=== PATIENT | male | born 1940 | race Caucasian/White ===

== ENCOUNTER 2018-10-13 09:00 | Inpatient (IN) ==
[~2018-10-13 09:00] MED LIST: DEXTROSE 50% 25 GM/50 ML SYRINGE IV PRN; ENALAPRIL 20 MG TABLET PO SCH; GLUCAGON 1 MG VIAL IM PRN
[2018-10-13 11:03] LABS: Basophils # 0.1 10*3/uL (0.0-0.2); Basophils % 0.6 % (0.0-0.8); Eosinophils # 0.2 10*3/uL (0.0-0.87); Eosinophils % 1.3 % (0.00-10.9); Hematocrit 43.8 VOL% (42.0-52.0); Hemoglobin 14.8 GM/DL (14.0-18.0); Immature Granulocytes % 0.3 %; Immature Granulocytes Absolute 0.04 #; Lymphocytes # 2.3 10*3/uL (1.4-4.0); Lymphocytes % 20.1 % (21.2-54.2); Mean Corpuscular HGB Conc 33.8 GM/DL (32-36); Mean Corpuscular Hemoglobin 30 PG (27-34); Mean Platelet Volume 9.8 FL (9.6-12.0); Monocytes # 0.8 10*3/uL (0.11-0.8); Monocytes % 7.2 % (1.7-12.7); Neutrophils # 8.1 10*3/uL (1.4-7.4); Neutrophils % 70.5 % (38.7-73.9); Platelet Count 240 T/CUMM (130-400); Red Blood Count 4.92 MC/CUMM (3.8-5.5); Red Cell Distribution Width 13.3 % (9.3-17.3); White Blood Count 11.5 T/CUMM (4-12)
[2018-10-13 11:41] LABS: Albumin 3.6 G/DL (3.4-5.0); Bilirubin,Total 0.4 MG/DL (0.2-1.0); Calcium 9.1 MG/DL (8.5-10.1); Osmolality,Calculated 263.7 MOS/KG (273-304); Potassium 4.4 MMOL/L (3.5-5.1); Total Protein 7.7 G/DL (6.4-8.3)
[2018-10-13] MEDS: SODIUM CHLORIDE 0.9% 1,000 ML IV SCH ×2 (12:47→22:13)
[2018-10-13] MEDS: NICOTINE 21 MG/24 HR PATCH TRANSDERM SCH (12:57)
[2018-10-13] MEDS: amLODIPine 5 MG TABLET PO SCH (13:00)
[2018-10-13] MEDS: SIMVASTATIN 10 MG TABLET PO SCH (13:00)
[2018-10-13] MEDS: ENALAPRIL 10 MG TABLET PO SCH (13:05)
[2018-10-13 14:30] LABS: ABG Base Excess 2.5 MMOL/L (-2.5-2.5); ABG HCO3 25.8 MMOL/L (20-26); ABG Oxygen Saturation 65.4 % (95-100); ABG PCO2 43.9 MM HG (35-48); ABG TCO2 23.8 MMOL/L (23-27)
[2018-10-13] MEDS: CHLORHEXIDINE 4% SOLN 118 ML BOTTLE TOP SCH ×2 (15:15→20:23)
[2018-10-13 15:54] LABS: ABG Base Excess 3.2 MMOL/L (-2.5-2.5); ABG HCO3 27.2 MMOL/L (20-26); ABG Oxygen Saturation 95.5 % (95-100); ABG PCO2 39.3 MM HG (35-48); ABG PH 7.449 (7.35-7.45); ABG PO2 73.3 MM HG (80-95)
[2018-10-13] MEDS: CHLORHEXIDINE 0.12% ORAL RINSE 60 ML BOTTLE SWISH/SPIT SCH (20:21)
[2018-10-14] MEDS ORDERED: PAPAVERINE 60 MG/2 ML VIAL ONE (04:23)
[2018-10-14] MEDS ORDERED: VANCOMYCIN 1,000 MG VIAL ONE (04:23)
[2018-10-14] MEDS ORDERED: MIDAZOLAM 10 MG/2 ML VIAL ONE (05:29)
[2018-10-14] MEDS ORDERED: SUFentanil 250 MCG/5 ML AMP ONE (05:29)
[2018-10-14] MEDS ORDERED: HEPARIN/NACL 0.9% 2 UNITS/ML 500 ML IV ONE (05:30)
[2018-10-14] MEDS ORDERED: CEFUROXIME 1,500 MG VIAL ONE (05:36)
[2018-10-14] MEDS ORDERED: DIAZEPAM 5 MG TABLET PO ONE (06:00)
[2018-10-14] MEDS ORDERED: IPRATROPIUM 500 MCG/2.5 ML NEB RESP TX ONE (06:00)
[2018-10-14] MEDS ORDERED: CEFUROXIME INJ 1,500 MG in SYRINGE 1 EACH IV ONE (06:30)
[2018-10-14 07:33] LABS: ABG Base Excess -0.7 MMOL/L (-2.5-2.5); ABG HCO3 23.9 MMOL/L (20-26); ABG Oxygen Saturation 99.9 % (95-100); ABG PH 7.389 (7.35-7.45); Glucose Heart Surgery 123 MG/DL (74-106); Hematocrit Heart Surgery 41.1 PERCENT (42-52); Hemoglobin Heart Surgery 13.4 G/DL (14.0-18.0); Ionized Calcium Arterial 1.16 MMOL/L (1.21-1.46); PH Patient Temp Arterial 7.389; Patient Temperature 37 CELCIUS; Sodium Heart/CVR 135 MMOL/L (135-145)
[2018-10-14] MEDS ORDERED: NITROPRUSSIDE 50 MG/2 ML VIAL ONE (07:40)
[2018-10-14] MEDS ORDERED: POTASSIUM CHLORIDE RIDER 100 ML IV ONE (07:40)
[2018-10-14] MEDS ORDERED: CALCIUM CHLORIDE 1,000 MG/10 ML SYRINGE IV ONE (07:40)
[2018-10-14] MEDS ORDERED: PHENYLEPHRINE DRIP 40 MG/250 ML PREMIX IV ONE (07:40)
[2018-10-14] MEDS ORDERED: ALBUMIN 5% 12.5 GM/250 ML VIAL IV ONE ×2 (07:41)
[2018-10-14 08:28] LABS: Apearance,Urine CLEAR (Clear); Bilirubin,Urine Negative (Negative); Blood, Urine Negative (Negative); Glucose,Urine (UA) Negative (Negative); Ketones,Urine Negative (Negative); Nitrite,Urine Negative (Negative); Protein,Urine Negative; RBC,Urine 1 /HPF (0-4); Urine Color Yellow (Yellow); Urine Specific Gravity 1.011 (1.001-1.035); Urine Urobilinogen < 2.0 EU/DL (0.2-1.0); WBC,Urine <1 /HPF (0-6)
[2018-10-14] MEDS: NICOTINE 21 MG/24 HR PATCH TRANSDERM SCH (08:47)
[2018-10-14] MEDS: amLODIPine 5 MG TABLET PO SCH (08:47)
[2018-10-14] MEDS: CHLORHEXIDINE 4% SOLN 118 ML BOTTLE TOP SCH (08:47)
[2018-10-14] MEDS: CHLORHEXIDINE 0.12% ORAL RINSE 60 ML BOTTLE SWISH/SPIT SCH ×2 (08:47→21:04)
[2018-10-14] MEDS: ENALAPRIL 10 MG TABLET PO SCH (08:48)
[2018-10-14] MEDS: SIMVASTATIN 10 MG TABLET PO SCH (08:48)
[2018-10-14 08:58] LABS: Hemoglobin Heart Surgery 9.4 G/DL (14.0-18.0); PH Patient Temp Venous 7.441; PO2 Patient Temp Venous 43.9 MM HG; Potassium Heart/CVR 4.7 MMOL/L (3.5-5.1); VBG Base Excess 0.7 MEQ/L (0-4); VBG HCO3 24.9 MEQ/L (24-28); VBG Oxygen Saturation 85.6 %; VBG PCO2 39.7 MMHG (41-51); VBG PH 7.412; VBG PO2 50.4 MMHG (17-40)
[2018-10-14] MEDS ORDERED: hydroCHLOROthiazide 12.5 MG CAPSULE PO SCH (09:00)
[2018-10-14 09:26] LABS: Hematocrit Heart Surgery 30.6 PERCENT (42-52); Hemoglobin Heart Surgery 9.9 G/DL (14.0-18.0); PCO2 Patient Temp Venous 32.7 MM HG; PH Patient Temp Venous 7.479; PO2 Patient Temp Venous 35.5 MM HG; Potassium Heart/CVR 5.2 MMOL/L (3.5-5.1); VBG Base Excess 1.2 MEQ/L (0-4); VBG HCO3 25.1 MEQ/L (24-28); VBG Oxygen Saturation 71.7 %; VBG PCO2 32.7 MMHG (41-51); VBG PH 7.479; VBG PO2 35.5 MMHG (17-40)
[2018-10-14] MEDS: SODIUM CHLORIDE 0.9% 1,000 ML IV SCH (09:48)
[2018-10-14] MEDS ORDERED: DEXTROSE 5% KCL 20 MEQ 20 MEQ/1,000 ML BAG IV ONE (09:55)
[2018-10-14] MEDS ORDERED: MANNITOL 100 GM/500 ML BAG IV ONE (09:55)
[2018-10-14] MEDS ORDERED: SODIUM BICARBONATE 50 MEQ/50 ML SYRINGE IV ONE (09:55)
[2018-10-14] MEDS ORDERED: methylPREDNISolone SOD SUC 1,000 MG/8 ML VIAL ONE (09:56)
[2018-10-14] MEDS ORDERED: PROTAMINE SULFATE 250 MG/25 ML VIAL IV ONE (09:56)
[2018-10-14] MEDS ORDERED: HEPARIN 10,000 UNIT/10 ML VIAL ONE (09:56)
[2018-10-14] MEDS ORDERED: MAGNESIUM SULFATE 10 GM/20 ML VIAL IV ONE (09:56)
[2018-10-14] MEDS ORDERED: ALBUMIN 25% 25 GM/100 ML VIAL IV ONE (09:56)
[2018-10-14] MEDS ORDERED: FUROSEMIDE 20 MG/2 ML VIAL ONE (09:56)
[2018-10-14 09:57] LABS: ABG PH 7.408 (7.35-7.45)
[2018-10-14 09:58] LABS: ABG PO2 33.6 MM HG (80-95)
[2018-10-14 10:04] LABS: ABG Base Excess -0.3 MMOL/L (-2.5-2.5); ABG HCO3 24.2 MMOL/L (20-26); ABG Oxygen Saturation 98.9 % (95-100); ABG PCO2 41.2 MM HG (35-48); ABG PH 7.386 (7.35-7.45); Glucose Heart Surgery 219 MG/DL (74-106); Hematocrit Heart Surgery 35.9 PERCENT (42-52); Hemoglobin Heart Surgery 11.7 G/DL (14.0-18.0); PCO2 Patient Temp Arterial 41.2 MMHG; PH Patient Temp Arterial 7.386; Patient Temperature 37 CELCIUS; Potassium Heart/CVR 4.2 MMOL/L (3.5-5.1); Sodium Heart/CVR 130 MMOL/L (135-145)
[2018-10-14] MEDS ORDERED: AMIODARONE 450 MG/9 ML VIAL IV ONE (10:26)
[2018-10-14] MEDS ORDERED: AMIODARONE INJ 450 MG in DEXTROSE 5% 241 ML IV SCH ×2 (10:45→16:45)
[2018-10-14] MEDS ORDERED: SEVOFLURANE 1 UNIT/15 MINUTE INH ONE (11:04)
[2018-10-14] MEDS ORDERED: AMIODARONE 150 MG/3 ML VIAL ONE (11:04)
[2018-10-14] MEDS ORDERED: CALCIUM CHLORIDE 1,000 MG/10 ML VIAL IV ONE (11:04)
[2018-10-14] MEDS ORDERED: PHENYLEPHRINE DRIP 20 MG/250 ML PREMIX IV ONE (11:04)
[2018-10-14] MEDS ORDERED: MIDAZOLAM 2 MG/2 ML VIAL ONE (11:04)
[2018-10-14] MEDS ORDERED: LACTATED RINGERS 1,000 ML IV ONE (11:05)
[2018-10-14] MEDS ORDERED: ESMOLOL 100 MG/10 ML VIAL IV ONE (11:05)
[2018-10-14] MEDS ORDERED: PHENYLEPHRINE 1 MG/10 ML SYRINGE IV ONE (11:05)
[2018-10-14] MEDS ORDERED: VECURONIUM 10 MG VIAL IV ONE (11:05)
[2018-10-14] MEDS ORDERED: ETOMIDATE 40 MG/20 ML VIAL IV ONE (11:05)
[2018-10-14] MEDS ORDERED: AMINOCAPROIC ACID 5,000 MG/20 ML VIAL ONE (11:05)
[2018-10-14] MEDS ORDERED: ACETAMINOPHEN 650 MG SUPP RECTAL PRN (11:14)
[2018-10-14] MEDS ORDERED: INSULIN REGULAR DRIP 100 ML IV SCH (11:14)
[2018-10-14] MEDS ORDERED: NITROPRUSSIDE 100 MG in DEXTROSE 5% 250 ML IV PRN (11:14)
[2018-10-14] MEDS ORDERED: MORPHINE 10 MG/1 ML VIAL IV PRN (11:14)
[2018-10-14] MEDS ORDERED: MIDAZOLAM 10 MG/2 ML VIAL IV PRN (11:14)
[2018-10-14] MEDS ORDERED: MAGNESIUM SULF RIDER 2 GM in PREMIX 1 EACH IV PRN (11:14)
[2018-10-14] MEDS ORDERED: PHENYLEPHRINE DRIP 40 MG/250 ML PREMIX IV PRN (11:14)
[2018-10-14] MEDS ORDERED: MORPHINE 4 MG/1 ML VIAL IV PRN (11:14)
[2018-10-14] MEDS ORDERED: VECURONIUM 10 MG VIAL IV PRN ×2 (11:14)
[2018-10-14] MEDS ORDERED: MIDAZOLAM 2 MG/2 ML VIAL IV PRN (11:14)
[2018-10-14] MEDS ORDERED: CALCIUM CHLORIDE 1,000 MG/10 ML SYRINGE IV PRN (11:14)
[2018-10-14] MEDS ORDERED: LACTATED RINGERS 250 ML IV PRN (11:14)
[2018-10-14] MEDS ORDERED: ONDANSETRON 4 MG/2 ML VIAL IV PRN (11:14)
[2018-10-14] MEDS ORDERED: INSULIN REGULAR 100 UNIT/ML IV ONE (11:14)
[2018-10-14] MEDS ORDERED: MAGNESIUM SULF RIDER 4 GM in PREMIX 1 EACH IV PRN (11:14)
[2018-10-14] MEDS ORDERED: DEXTROSE 50% 25 GM/50 ML SYRINGE IV PRN ×2 (11:14)
[2018-10-14 11:25] LABS: ABG Base Excess -0.4 MMOL/L (-2.5-2.5); ABG PCO2 44.4 MM HG (35-48); ABG PH 7.363 (7.35-7.45); ABG PO2 79.3 MM HG (80-95); ABG TCO2 22.3 MMOL/L (23-27); Glucose Heart Surgery 205 MG/DL (74-106); Hematocrit Heart Surgery 39.3 PERCENT (42-52); Hemoglobin Heart Surgery 12.8 G/DL (14.0-18.0); Potassium Heart/CVR 3.8 MMOL/L (3.5-5.1)
[2018-10-14 11:26] LABS: Basophils % 0.4 % (0.0-0.8); Eosinophils # 0.1 10*3/uL (0.0-0.87); Eosinophils % 0.6 % (0.00-10.9); Hematocrit 36.9 VOL% (42.0-52.0); Hemoglobin 12.2 GM/DL (14.0-18.0); Immature Granulocytes % 0.7 %; Immature Granulocytes Absolute 0.07 #; Lymphocytes # 0.8 10*3/uL (1.4-4.0); Lymphocytes % 7.4 % (21.2-54.2); Mean Corpuscular HGB Conc 33.1 GM/DL (32-36); Mean Corpuscular Hemoglobin 30 PG (27-34); Mean Corpuscular Volume 89.8 FL (87-102); Mean Platelet Volume 9.4 FL (9.6-12.0); Monocytes # 0.5 10*3/uL (0.11-0.8); Monocytes % 4.4 % (1.7-12.7); Neutrophils % 86.5 % (38.7-73.9); Platelet Count 203 T/CUMM (130-400); Red Blood Count 4.11 MC/CUMM (3.8-5.5); Red Cell Distribution Width 13.3 % (9.3-17.3); White Blood Count 10.4 T/CUMM (4-12)
[2018-10-14 11:35] LABS: PT Patient Result 10.9 SECS; Partial Thromboplastin Time 29.8 SECS (0-40)
[2018-10-14 11:58] LABS: CKMB % 3.9 %; Troponin I 0.915 NG/ML (0.00-0.045)
[2018-10-14] MEDS: POTASSIUM CHLORIDE RIDER 20 MEQ in PREMIX 1 EACH IV PRN ×3 (12:00→20:56)
[2018-10-14] MEDS: SODIUM CHLORIDE 0.45% 1,000 ML IV SCH ×2 (12:00)
[2018-10-14] MEDS: LACTATED RINGERS 1,000 ML IV PRN ×2 (12:00→18:10)
[2018-10-14 12:03] LABS: Albumin 3.3 G/DL (3.4-5.0); Bilirubin,Total 0.9 MG/DL (0.2-1.0); Calcium 8.2 MG/DL (8.5-10.1); Osmolality,Calculated 275.1 MOS/KG (273-304); Potassium 3.8 MMOL/L (3.5-5.1); Total Protein 6.3 G/DL (6.4-8.3)
[2018-10-14] MEDS: KETOROLAC 30 MG/1 ML VIAL IV SCH ×3 (12:44→23:54)
[2018-10-14] MEDS: ALBUMIN 5% 12.5 GM in PREMIX 1 EACH IV PRN ×5 (12:45→20:00)
[2018-10-14 12:48] LABS: ABG Base Excess -0.5 MMOL/L (-2.5-2.5); ABG Oxygen Saturation 96.5 % (95-100); ABG PCO2 43.9 MM HG (35-48); ABG PH 7.365 (7.35-7.45); ABG PO2 90.5 MM HG (80-95); ABG TCO2 22.1 MMOL/L (23-27); Glucose Heart Surgery 196 MG/DL (74-106); Hematocrit Heart Surgery 38.9 PERCENT (42-52); Hemoglobin Heart Surgery 12.7 G/DL (14.0-18.0); Potassium Heart/CVR 3.7 MMOL/L (3.5-5.1)
[2018-10-14] MEDS: POTASSIUM CHLORIDE RIDER 10 MEQ in PREMIX 1 EACH IV PRN (14:10)
[2018-10-14 14:11] LABS: ABG Base Excess -1.3 MMOL/L (-2.5-2.5); ABG HCO3 23.3 MMOL/L (20-26); ABG Oxygen Saturation 96.2 % (95-100); ABG PCO2 44.3 MM HG (35-48); ABG PO2 89.5 MM HG (80-95); ABG TCO2 21.8 MMOL/L (23-27); Glucose Heart Surgery 195 MG/DL (74-106); Hematocrit Heart Surgery 36.9 PERCENT (42-52); Potassium Heart/CVR 4.2 MMOL/L (3.5-5.1)
[2018-10-14] MEDS: ALBUTEROL/IPRATROPIUM 3 ML NEB RESP TX SCH ×3 (15:10→23:36)
[2018-10-14 16:11] LABS: ABG Base Excess -1.4 MMOL/L (-2.5-2.5); ABG HCO3 25.2 MMOL/L (20-26); ABG Oxygen Saturation 95.6 % (95-100); ABG PCO2 50.3 MM HG (35-48); ABG PH 7.318 (7.35-7.45); ABG PO2 90.7 MM HG (80-95); ABG TCO2 26.8 MMOL/L (23-27); Glucose Heart Surgery 191 MG/DL (74-106); Hemoglobin Heart Surgery 12.6 G/DL (14.0-18.0)
[2018-10-14] MEDS: INSULIN REGULAR 100 UNIT/ML IV PRN ×2 (16:35→18:08)
[2018-10-14 17:56] LABS: ABG Base Excess -2.1 MMOL/L (-2.5-2.5); ABG HCO3 22.6 MMOL/L (20-26); ABG Oxygen Saturation 97.4 % (95-100); ABG PCO2 46.2 MM HG (35-48); ABG PH 7.326 (7.35-7.45); ABG TCO2 21.7 MMOL/L (23-27); Glucose Heart Surgery 199 MG/DL (74-106); Hematocrit Heart Surgery 36.2 PERCENT (42-52); Hemoglobin Heart Surgery 11.8 G/DL (14.0-18.0); Potassium Heart/CVR 4.3 MMOL/L (3.5-5.1)
[2018-10-14] MEDS: CEFUROXIME INJ 1,500 MG in SYRINGE 1 EACH IV SCH (19:03)
[2018-10-14] MEDS ORDERED: FUROSEMIDE 40 MG/4 ML VIAL IV PRN (19:41)
[2018-10-14 20:18] LABS: ABG Base Excess -2.5 MMOL/L (-2.5-2.5); ABG HCO3 22.3 MMOL/L (20-26); ABG Oxygen Saturation 96.2 % (95-100); ABG PCO2 41.9 MM HG (35-48); ABG PH 7.348 (7.35-7.45); ABG PO2 86.7 MM HG (80-95); ABG TCO2 20.9 MMOL/L (23-27); Glucose Heart Surgery 144 MG/DL (74-106); Hematocrit Heart Surgery 32.6 PERCENT (42-52); Hemoglobin Heart Surgery 10.6 G/DL (14.0-18.0); Potassium Heart/CVR 3.7 MMOL/L (3.5-5.1)
[2018-10-14 21:03] LABS: CKMB % 4.1 %
[2018-10-14 21:07] LABS: Troponin I 1.12 NG/ML (0.00-0.045)
[2018-10-15 01:30] LABS: ABG Base Excess -1.9 MMOL/L (-2.5-2.5); ABG HCO3 22.8 MMOL/L (20-26); ABG PCO2 38.4 MM HG (35-48); ABG PH 7.382 (7.35-7.45); ABG PO2 89.1 MM HG (80-95); ABG TCO2 20.6 MMOL/L (23-27); Glucose Heart Surgery 158 MG/DL (74-106); Hematocrit Heart Surgery 33.3 PERCENT (42-52); Hemoglobin Heart Surgery 10.8 G/DL (14.0-18.0); Potassium Heart/CVR 4.1 MMOL/L (3.5-5.1)
[2018-10-15] MEDS: POTASSIUM CHLORIDE RIDER 20 MEQ in PREMIX 1 EACH IV PRN ×2 (01:39→04:46)
[2018-10-15] MEDS: ALBUTEROL/IPRATROPIUM 3 ML NEB RESP TX SCH ×6 (02:20→23:28)
[2018-10-15 03:50] LABS: Basophils % 0.1 % (0.0-0.8); Hematocrit 31.1 VOL% (42.0-52.0); Hemoglobin 10.4 GM/DL (14.0-18.0); Immature Granulocytes % 0.4 %; Immature Granulocytes Absolute 0.06 #; Lymphocytes # 0.7 10*3/uL (1.4-4.0); Mean Corpuscular HGB Conc 33.4 GM/DL (32-36); Mean Corpuscular Hemoglobin 31 PG (27-34); Mean Corpuscular Volume 91.5 FL (87-102); Mean Platelet Volume 9.9 FL (9.6-12.0); Monocytes # 0.5 10*3/uL (0.11-0.8); Monocytes % 3.1 % (1.7-12.7); Neutrophils # 15.4 10*3/uL (1.4-7.4); Neutrophils % 92.4 % (38.7-73.9); Platelet Count 152 T/CUMM (130-400); Red Cell Distribution Width 13.6 % (9.3-17.3); White Blood Count 16.7 T/CUMM (4-12)
[2018-10-15 03:52] LABS: ABG Base Excess -1.7 MMOL/L (-2.5-2.5); ABG Oxygen Saturation 96.3 % (95-100); ABG PCO2 37.7 MM HG (35-48); ABG PH 7.391 (7.35-7.45); ABG PO2 81.1 MM HG (80-95); ABG TCO2 20.8 MMOL/L (23-27); Glucose Heart Surgery 154 MG/DL (74-106); Hemoglobin Heart Surgery 10.3 G/DL (14.0-18.0); Potassium Heart/CVR 4.1 MMOL/L (3.5-5.1)
[2018-10-15 04:20] LABS: Albumin 3.9 G/DL (3.4-5.0); Bilirubin,Direct 0.16 MG/DL (0.0-0.20); Bilirubin,Total 0.4 MG/DL (0.2-1.0); Calcium 8.2 MG/DL (8.5-10.1); Osmolality,Calculated 277.8 MOS/KG (273-304); Potassium 4.3 MMOL/L (3.5-5.1); Total Protein 6.3 G/DL (6.4-8.3)
[2018-10-15 04:21] LABS: CKMB % 3.7 %
[2018-10-15 04:23] LABS: Troponin I 1.04 NG/ML (0.00-0.045)
[2018-10-15 04:52] LABS: Lymphocytes 1 % (20-55); Segmented Neutrophils 98 % (50-85); Total Cells Counted 100
[2018-10-15 04:53] LABS: Microcytosis Slight
[2018-10-15 04:54] LABS: Hypochromasia Slight; Platelet Estimate Adequate
[2018-10-15] MEDS: KETOROLAC 30 MG/1 ML VIAL IV SCH ×3 (05:29→16:33)
[2018-10-15 05:52] LABS: ABG Base Excess 0.1 MMOL/L (-2.5-2.5); ABG HCO3 24.5 MMOL/L (20-26); ABG Oxygen Saturation 96.5 % (95-100); ABG PCO2 38.3 MM HG (35-48); ABG PH 7.413 (7.35-7.45); ABG TCO2 21.9 MMOL/L (23-27); Glucose Heart Surgery 131 MG/DL (74-106); Potassium Heart/CVR 4.5 MMOL/L (3.5-5.1)
[2018-10-15] MEDS ORDERED: GLUCAGON 1 MG VIAL IM PRN (06:26)
[2018-10-15] MEDS ORDERED: DEXTROSE 50% 25 GM/50 ML SYRINGE IV PRN (06:26)
[2018-10-15] MEDS: CEFUROXIME INJ 1,500 MG in SYRINGE 1 EACH IV SCH ×2 (08:17→18:22)
[2018-10-15] MEDS: AMIODARONE 200 MG TABLET PO SCH ×2 (08:17→20:08)
[2018-10-15] MEDS: hydroCHLOROthiazide 12.5 MG CAPSULE PO SCH (08:18)
[2018-10-15] MEDS: amLODIPine 5 MG TABLET PO SCH (08:18)
[2018-10-15] MEDS: SIMVASTATIN 10 MG TABLET PO SCH (08:19)
[2018-10-15] MEDS: ENALAPRIL 10 MG TABLET PO SCH (08:19)
[2018-10-15] MEDS: NICOTINE 21 MG/24 HR PATCH TRANSDERM SCH (08:20)
[2018-10-15] MEDS: CHLORHEXIDINE 0.12% ORAL RINSE 60 ML BOTTLE SWISH/SPIT SCH ×2 (08:26→20:08)
[2018-10-15] MEDS: INSULIN REGULAR 100 UNIT/ML SUBCUT SCH ×5 (08:34→23:55)
[2018-10-15 11:35] LABS: CKMB % 2.7 %
[2018-10-15 11:36] LABS: Troponin I 0.864 NG/ML (0.00-0.045)
[2018-10-15] MEDS: SODIUM CHLORIDE 0.45% 1,000 ML IV SCH ×2 (11:43)
[2018-10-16] MEDS: ALBUTEROL/IPRATROPIUM 3 ML NEB RESP TX SCH ×2 (03:55→07:42)
[2018-10-16] MEDS: INSULIN REGULAR 100 UNIT/ML SUBCUT SCH ×2 (03:59→07:36)
[2018-10-16 04:48] LABS: Basophils % 0.1 % (0.0-0.8); Hematocrit 32.1 VOL% (42.0-52.0); Hemoglobin 10.7 GM/DL (14.0-18.0); Immature Granulocytes % 0.7 %; Immature Granulocytes Absolute 0.13 #; Lymphocytes # 0.8 10*3/uL (1.4-4.0); Lymphocytes % 4.1 % (21.2-54.2); Mean Corpuscular HGB Conc 33.3 GM/DL (32-36); Mean Corpuscular Hemoglobin 30 PG (27-34); Mean Corpuscular Volume 90.4 FL (87-102); Mean Platelet Volume 10.2 FL (9.6-12.0); Monocytes # 0.9 10*3/uL (0.11-0.8); Neutrophils # 16.9 10*3/uL (1.4-7.4); Neutrophils % 90.1 % (38.7-73.9); Platelet Count 159 T/CUMM (130-400); Red Blood Count 3.55 MC/CUMM (3.8-5.5); Red Cell Distribution Width 13.8 % (9.3-17.3); White Blood Count 18.7 T/CUMM (4-12)
[2018-10-16 05:01] LABS: Albumin 3.5 G/DL (3.4-5.0); Bilirubin,Direct 0.14 MG/DL (0.0-0.20); Bilirubin,Total 0.4 MG/DL (0.2-1.0); Calcium 8.6 MG/DL (8.5-10.1); Osmolality,Calculated 272.2 MOS/KG (273-304); Total Protein 6.6 G/DL (6.4-8.3)
[2018-10-16] MEDS ORDERED: AMIODARONE INJ 100 MG in DEXTROSE 5% 100 ML IV ONE (05:09)
[2018-10-16 05:24] LABS: Band Neutrophils 1 % (0-10); Lymphocytes 6 % (20-55); Platelet Estimate Normal; Segmented Neutrophils 91 % (50-85); Total Cells Counted 100
[2018-10-16] MEDS ORDERED: DILTIAZEM 25 MG/5 ML VIAL IV ONE (05:49)
[2018-10-16] MEDS: dilTIAZem Drip 125 MG/125 ML PREMIX IV SCH (06:10)
[2018-10-16] MEDS: CHLORHEXIDINE 0.12% ORAL RINSE 60 ML BOTTLE SWISH/SPIT SCH ×2 (08:47→20:20)
[2018-10-16] MEDS: NICOTINE 21 MG/24 HR PATCH TRANSDERM SCH (08:47)
[2018-10-16] MEDS: hydroCHLOROthiazide 12.5 MG CAPSULE PO SCH (08:48)
[2018-10-16] MEDS: SIMVASTATIN 10 MG TABLET PO SCH (08:48)
[2018-10-16] MEDS: AMIODARONE 200 MG TABLET PO SCH ×2 (08:48→20:20)
[2018-10-16] MEDS: ENALAPRIL 10 MG TABLET PO SCH ×2 (08:48→15:08)
[2018-10-16] MEDS: amLODIPine 5 MG TABLET PO SCH ×2 (08:48→15:08)
[2018-10-16] MEDS: chlordiazePOXIDE 10 MG CAPSULE PO SCH ×4 (08:57→20:19)
[2018-10-16] MEDS: CARVEDILOL 6.25 MG TABLET PO SCH ×2 (08:57→16:12)
[2018-10-16] MEDS: SODIUM CHLORIDE 0.45% 1,000 ML IV SCH ×2 (10:24)
[2018-10-16] MEDS ORDERED: ACETAMINOPHEN 325 MG TABLET ONE (12:07)
[2018-10-16] MEDS ORDERED: ACETAMINOPHEN 325 MG TABLET PO PRN (12:09)
[2018-10-16] MEDS ORDERED: PROPOFOL 1,000 MG/100 ML BOTTLE IV ONE (13:03)
[2018-10-16] MEDS ORDERED: PANTOPRAZOLE 40 MG VIAL IV ONE (15:34)
[2018-10-16] MEDS ORDERED: NITROGLYCERIN DRIP 50 MG/250 ML BOTTLE IV PRN (16:56)
[2018-10-16] MEDS ORDERED: METOCLOPRAMIDE 10 MG/2 ML VIAL IV ONE (17:06)
[2018-10-16] MEDS ORDERED: PROMETHAZINE INJ 12.5 MG in SODIUM CHLORIDE 0.9% 50 ML IV PRN (17:06)
[2018-10-16] MEDS ORDERED: METOCLOPRAMIDE 10 MG/2 ML VIAL IV PRN (18:34)
[2018-10-16] MEDS: APIXABAN 2.5 MG TABLET PO SCH (20:19)
[2018-10-16] MEDS: cloNIDine 0.1 MG TABLET PO PRN (22:23)
[2018-10-17 03:54] LABS: Basophils % 0.1 % (0.0-0.8); Hematocrit 31.8 VOL% (42.0-52.0); Hemoglobin 10.6 GM/DL (14.0-18.0); Immature Granulocytes % 0.6 %; Lymphocytes # 0.9 10*3/uL (1.4-4.0); Lymphocytes % 4.9 % (21.2-54.2); Mean Corpuscular HGB Conc 33.3 GM/DL (32-36); Mean Corpuscular Hemoglobin 31 PG (27-34); Mean Corpuscular Volume 91.4 FL (87-102); Mean Platelet Volume 10.1 FL (9.6-12.0); Monocytes % 5.7 % (1.7-12.7); Neutrophils % 88.7 % (38.7-73.9); Platelet Count 172 T/CUMM (130-400); Red Blood Count 3.48 MC/CUMM (3.8-5.5); Red Cell Distribution Width 13.7 % (9.3-17.3); White Blood Count 18.1 T/CUMM (4-12)
[2018-10-17 04:23] LABS: Albumin 3.1 G/DL (3.4-5.0); Bilirubin,Direct 0.18 MG/DL (0.0-0.20); Bilirubin,Total 0.6 MG/DL (0.2-1.0); Calcium 8.6 MG/DL (8.5-10.1); Potassium 3.8 MMOL/L (3.5-5.1); Total Protein 6.6 G/DL (6.4-8.3)
[2018-10-17 04:41] LABS: Lymphocytes 7 % (20-55); Segmented Neutrophils 90 % (50-85); Total Cells Counted 100
[2018-10-17 04:42] LABS: Anisocytosis 1+; Platelet Estimate Adequate
[2018-10-17] MEDS: cloNIDine 0.1 MG TABLET PO PRN (04:50)
[2018-10-17] MEDS: POTASSIUM CHLORIDE RIDER 10 MEQ in PREMIX 1 EACH IV PRN (04:50)
[2018-10-17] MEDS: dilTIAZem Drip 125 MG/125 ML PREMIX IV SCH (06:49)
[2018-10-17] MEDS: CARVEDILOL 6.25 MG TABLET PO SCH ×2 (08:13→16:58)
[2018-10-17] MEDS: ENALAPRIL 10 MG TABLET PO SCH (08:13)
[2018-10-17] MEDS: APIXABAN 2.5 MG TABLET PO SCH ×2 (09:14→20:47)
[2018-10-17] MEDS: chlordiazePOXIDE 10 MG CAPSULE PO SCH ×4 (09:14→20:47)
[2018-10-17] MEDS: AMIODARONE 200 MG TABLET PO SCH ×2 (09:14→20:48)
[2018-10-17] MEDS: NICOTINE 21 MG/24 HR PATCH TRANSDERM SCH (09:14)
[2018-10-17] MEDS: CHLORHEXIDINE 0.12% ORAL RINSE 60 ML BOTTLE SWISH/SPIT SCH ×2 (09:15→20:48)
[2018-10-17] MEDS: PANTOPRAZOLE 40 MG VIAL IV SCH (09:15)
[2018-10-17] MEDS: SIMVASTATIN 10 MG TABLET PO SCH (09:15)
[2018-10-17] MEDS: SODIUM CHLORIDE 0.45% 1,000 ML IV SCH ×2 (12:16)
[2018-10-17] MEDS: ALBUMIN 5% 12.5 GM in PREMIX 1 EACH IV PRN ×2 (12:30→13:28)
[2018-10-17] MEDS ORDERED: AMIODARONE INJ 100 MG in DEXTROSE 5% 100 ML IV ONE (12:47)
[2018-10-17 13:42] LABS: ABG Base Excess 0.6 MMOL/L (-2.5-2.5); ABG HCO3 25.2 MMOL/L (20-26); ABG Oxygen Saturation 94.4 % (95-100); ABG PCO2 40.6 MM HG (35-48); ABG PH 7.411 (7.35-7.45); ABG PO2 77.4 MM HG (80-95); ABG TCO2 26.5 MMOL/L (23-27)
[2018-10-18 04:25] LABS: ABG Base Excess 3.6 MMOL/L (-2.5-2.5); ABG HCO3 27.6 MMOL/L (20-26); ABG Oxygen Saturation 89.3 % (95-100); ABG PCO2 39.2 MM HG (35-48); ABG PH 7.465 (7.35-7.45); ABG PO2 56.8 MM HG (80-95); ABG TCO2 28.8 MMOL/L (23-27); Allen Test Positive
[2018-10-18 05:36] LABS: Basophils % 0.1 % (0.0-0.8); Eosinophils # 0.1 10*3/uL (0.0-0.87); Eosinophils % 0.7 % (0.00-10.9); Hematocrit 29.5 VOL% (42.0-52.0); Hemoglobin 9.6 GM/DL (14.0-18.0); Immature Granulocytes % 0.3 %; Immature Granulocytes Absolute 0.04 #; Lymphocytes # 1.1 10*3/uL (1.4-4.0); Lymphocytes % 9.2 % (21.2-54.2); Mean Corpuscular HGB Conc 32.5 GM/DL (32-36); Mean Corpuscular Hemoglobin 30 PG (27-34); Mean Corpuscular Volume 92.5 FL (87-102); Mean Platelet Volume 10.2 FL (9.6-12.0); Monocytes % 8.2 % (1.7-12.7); Neutrophils # 9.4 10*3/uL (1.4-7.4); Neutrophils % 81.5 % (38.7-73.9); Platelet Count 166 T/CUMM (130-400); Red Blood Count 3.19 MC/CUMM (3.8-5.5); Red Cell Distribution Width 13.4 % (9.3-17.3); White Blood Count 11.6 T/CUMM (4-12)
[2018-10-18 06:05] LABS: Calcium 8.6 MG/DL (8.5-10.1); Osmolality,Calculated 276.1 MOS/KG (273-304); Potassium 3.7 MMOL/L (3.5-5.1)
[2018-10-18] MEDS: dilTIAZem Drip 125 MG/125 ML PREMIX IV SCH (07:28)
[2018-10-18] MEDS: SIMVASTATIN 10 MG TABLET PO SCH (08:44)
[2018-10-18] MEDS: CARVEDILOL 6.25 MG TABLET PO SCH ×2 (08:44→16:49)
[2018-10-18] MEDS: AMIODARONE 200 MG TABLET PO SCH ×2 (08:44→22:00)
[2018-10-18] MEDS: ENALAPRIL 10 MG TABLET PO SCH (08:45)
[2018-10-18] MEDS: chlordiazePOXIDE 10 MG CAPSULE PO SCH ×4 (08:45→22:00)
[2018-10-18] MEDS: NICOTINE 21 MG/24 HR PATCH TRANSDERM SCH (08:49)
[2018-10-18] MEDS: PANTOPRAZOLE 40 MG VIAL IV SCH (08:51)
[2018-10-18] MEDS: CHLORHEXIDINE 0.12% ORAL RINSE 60 ML BOTTLE SWISH/SPIT SCH ×2 (08:56→22:01)
[2018-10-18] MEDS: APIXABAN 2.5 MG TABLET PO SCH ×2 (09:00→22:02)
[2018-10-18] MEDS ORDERED: MAGNESIUM SULF RIDER 2 GM in PREMIX 1 EACH IV PRN (13:19)
[2018-10-18] MEDS ORDERED: MAGNESIUM SULF RIDER 4 GM in PREMIX 1 EACH IV PRN (13:19)
[2018-10-18] MEDS ORDERED: oxyCODONE/ACETAMINOPHEN 5-325 MG TABLET PO PRN (13:19)
[2018-10-18] MEDS ORDERED: ALUMINUM/MAGNES/SIMETH MAX STR 30 ML UDCUP PO PRN (13:19)
[2018-10-18] MEDS ORDERED: ZALEPLON 5 MG CAPSULE PO PRN (13:19)
[2018-10-18] MEDS ORDERED: ONDANSETRON 4 MG/2 ML VIAL IV PRN (13:19)
[2018-10-18] MEDS ORDERED: DEXTROSE 50% 25 GM/50 ML SYRINGE IV PRN (13:19)
[2018-10-18] MEDS ORDERED: KETOROLAC 30 MG/1 ML VIAL IV PRN (13:19)
[2018-10-18] MEDS ORDERED: SODIUM CHLOR 0.45% KCL 20 MEQ 20 MEQ/1,000 ML BAG IV SCH (13:19)
[2018-10-18] MEDS ORDERED: MAGNESIUM HYDROXIDE SUSP 30 ML UDCUP PO PRN (13:19)
[2018-10-18] MEDS ORDERED: GLUCAGON 1 MG VIAL IM PRN ×2 (13:19)
[2018-10-18] MEDS ORDERED: DEXTROSE 50% 25 GM/50 ML VIAL IV PRN (13:19)
[2018-10-18] MEDS ORDERED: ACETAMINOPHEN 325 MG TABLET PO PRN (13:19)
[2018-10-19 04:50] LABS: Basophils % 0.1 % (0.0-0.8); Eosinophils # 0.1 10*3/uL (0.0-0.87); Eosinophils % 1.2 % (0.00-10.9); Hematocrit 28.6 VOL% (42.0-52.0); Hemoglobin 9.5 GM/DL (14.0-18.0); Immature Granulocytes % 0.5 %; Immature Granulocytes Absolute 0.05 #; Lymphocytes # 1.1 10*3/uL (1.4-4.0); Lymphocytes % 10.3 % (21.2-54.2); Mean Corpuscular HGB Conc 33.2 GM/DL (32-36); Mean Corpuscular Hemoglobin 30 PG (27-34); Mean Corpuscular Volume 91.4 FL (87-102); Mean Platelet Volume 9.7 FL (9.6-12.0); Monocytes # 1.1 10*3/uL (0.11-0.8); Monocytes % 9.9 % (1.7-12.7); Neutrophils # 8.4 10*3/uL (1.4-7.4); Platelet Count 193 T/CUMM (130-400); Red Blood Count 3.13 MC/CUMM (3.8-5.5); Red Cell Distribution Width 13.2 % (9.3-17.3); White Blood Count 10.7 T/CUMM (4-12)
[2018-10-19 05:13] LABS: Alanine Aminotransferase 38 U/L (16-61); Albumin 2.8 G/DL (3.4-5.0); Alkaline Phosphatase 37 U/L (45-117); Aspartate Amino Transferase 38 U/L (0-37); Bilirubin,Indirect 0.3 MG/DL (0.0-1.0); Blood Urea Nitrogen 26 MG/DL (7-18); Calcium 8.4 MG/DL (8.5-10.1); Glucose 108 MG/DL (74-106); Osmolality,Calculated 280.7 MOS/KG (273-304); Potassium 3.7 MMOL/L (3.5-5.1); Sodium 138 MMOL/L (136-145)
[2018-10-19 05:14] LABS: Troponin I 0.163 NG/ML (0.00-0.045)
[2018-10-19] MEDS ORDERED: FUROSEMIDE 40 MG/4 ML VIAL IV ONE (06:00)
[2018-10-19] MEDS: NICOTINE 21 MG/24 HR PATCH TRANSDERM SCH (09:46)
[2018-10-19] MEDS: chlordiazePOXIDE 10 MG CAPSULE PO SCH ×4 (09:47→22:26)
[2018-10-19] MEDS: SIMVASTATIN 10 MG TABLET PO SCH (09:47)
[2018-10-19] MEDS: APIXABAN 2.5 MG TABLET PO SCH ×2 (09:47→22:27)
[2018-10-19] MEDS: ASPIRIN EC 325 MG TABLET PO SCH (09:47)
[2018-10-19] MEDS: DOCUSATE SODIUM 100 MG CAPSULE PO SCH (09:47)
[2018-10-19] MEDS: AMIODARONE 200 MG TABLET PO SCH ×2 (09:47→22:27)
[2018-10-19] MEDS: FERROUS SULFATE 325 MG TABLET PO SCH (09:47)
[2018-10-19] MEDS: CHLORHEXIDINE 0.12% ORAL RINSE 60 ML BOTTLE SWISH/SPIT SCH ×2 (09:48→22:27)
[2018-10-19] MEDS: CARVEDILOL 3.125 MG TABLET PO SCH ×2 (09:48→17:47)
[2018-10-19] MEDS: PANTOPRAZOLE 40 MG TABLET PO SCH (09:48)
[2018-10-19] MEDS: SODIUM CHLORIDE 0.45% 1,000 ML IV SCH ×2 (13:18→13:19)
[2018-10-20 05:22] LABS: Basophils % 0.2 % (0.0-0.8); Eosinophils # 0.2 10*3/uL (0.0-0.87); Eosinophils % 2.4 % (0.00-10.9); Hematocrit 29.1 VOL% (42.0-52.0); Hemoglobin 9.6 GM/DL (14.0-18.0); Immature Granulocytes % 0.6 %; Immature Granulocytes Absolute 0.05 #; Lymphocytes # 1.6 10*3/uL (1.4-4.0); Lymphocytes % 17.4 % (21.2-54.2); Mean Corpuscular Hemoglobin 30 PG (27-34); Mean Corpuscular Volume 90.9 FL (87-102); Mean Platelet Volume 10.2 FL (9.6-12.0); Monocytes % 11.1 % (1.7-12.7); Neutrophils # 6.2 10*3/uL (1.4-7.4); Neutrophils % 68.3 % (38.7-73.9); Platelet Count 225 T/CUMM (130-400); Red Cell Distribution Width 13.1 % (9.3-17.3)
[2018-10-20 05:48] LABS: Alanine Aminotransferase 43 U/L (16-61); Albumin 2.6 G/DL (3.4-5.0); Alkaline Phosphatase 36 U/L (45-117); Aspartate Amino Transferase 29 U/L (0-37); Bilirubin,Indirect 0.6 MG/DL (0.0-1.0); Blood Urea Nitrogen 24 MG/DL (7-18); Calcium 8.6 MG/DL (8.5-10.1); Glucose 98 MG/DL (74-106); Potassium 3.4 MMOL/L (3.5-5.1); Sodium 136 MMOL/L (136-145)
[2018-10-20 05:51] LABS: Troponin I 0.091 NG/ML (0.00-0.045)
[2018-10-20] MEDS: CARVEDILOL 3.125 MG TABLET PO SCH ×2 (09:05→16:55)
[2018-10-20] MEDS: PANTOPRAZOLE 40 MG TABLET PO SCH (09:05)
[2018-10-20] MEDS: APIXABAN 2.5 MG TABLET PO SCH ×2 (09:06→21:26)
[2018-10-20] MEDS: FERROUS SULFATE 325 MG TABLET PO SCH (09:06)
[2018-10-20] MEDS: chlordiazePOXIDE 10 MG CAPSULE PO SCH ×4 (09:06→21:26)
[2018-10-20] MEDS: NICOTINE 21 MG/24 HR PATCH TRANSDERM SCH (09:06)
[2018-10-20] MEDS: DOCUSATE SODIUM 100 MG CAPSULE PO SCH (09:06)
[2018-10-20] MEDS: POTASSIUM CHLORIDE 20 MEQ TABLET PO PRN ×3 (09:06→16:55)
[2018-10-20] MEDS: ASPIRIN EC 325 MG TABLET PO SCH (09:06)
[2018-10-20] MEDS: SIMVASTATIN 10 MG TABLET PO SCH (09:06)
[2018-10-20] MEDS: AMIODARONE 200 MG TABLET PO SCH ×2 (09:08→21:26)
[2018-10-20] MEDS: CHLORHEXIDINE 0.12% ORAL RINSE 60 ML BOTTLE SWISH/SPIT SCH ×2 (09:11→21:33)
[2018-10-21 08:23] VITALS: BP 112/60
[2018-10-21] MEDS: CARVEDILOL 3.125 MG TABLET PO SCH (08:41)
[2018-10-21] MEDS: APIXABAN 2.5 MG TABLET PO SCH (08:41)
[2018-10-21] MEDS: ASPIRIN EC 325 MG TABLET PO SCH (08:41)
[2018-10-21] MEDS: PANTOPRAZOLE 40 MG TABLET PO SCH (08:41)
[2018-10-21] MEDS: SIMVASTATIN 10 MG TABLET PO SCH (08:41)
[2018-10-21] MEDS: NICOTINE 21 MG/24 HR PATCH TRANSDERM SCH (08:41)
[2018-10-21] MEDS: DOCUSATE SODIUM 100 MG CAPSULE PO SCH (08:41)
[2018-10-21] MEDS: AMIODARONE 200 MG TABLET PO SCH (08:41)
[2018-10-21] MEDS: FERROUS SULFATE 325 MG TABLET PO SCH (08:42)
[2018-10-21] MEDS: CHLORHEXIDINE 0.12% ORAL RINSE 60 ML BOTTLE SWISH/SPIT SCH (08:43)
[2018-10-21] MEDS: chlordiazePOXIDE 10 MG CAPSULE PO SCH (08:43)
== END 2018-10-21 11:00 | disposition home health service (06) | DRG 236 ==
LOC: N.4E 09:50 → N.CVR 10-14 08:02 → N.ICU 10-15 07:16 → N.TELES 10-18 17:57